=== PATIENT | male | born 1950 | race Caucasian/White ===

== ENCOUNTER → 2019-02-05 12:47 | Outpatient (CLI) | payer OTHER ==
[2015-07-16 11:14] VITALS: BMI 32.5
[~2019-02-05 12:47] MED LIST: SYNTHROID75 MCG PO
== END | disposition home or self-care (01) ==
LOC: D.HCCARDIO 12:47
PROVIDERS: ATTEND Internal Medicine Cardiovascular Disease
DX: I25.10 Atherosclerotic heart disease of native coronary artery without angina pectoris (principal)

== ENCOUNTER → 2020-03-09 11:07 | Outpatient (CLI) | payer OTHER ==
[2015-07-16 11:14] VITALS: BMI 32.5
== END | disposition home or self-care (01) ==
LOC: D.HCCECHO 11:00
PROVIDERS: ATTEND Internal Medicine Cardiovascular Disease
DX: I25.10 Atherosclerotic heart disease of native coronary artery without angina pectoris (principal)